=== PATIENT | male | born 1980 | race Caucasian/White ===

== ENCOUNTER 2017-11-06 20:49 | Emergency (ER) | payer OTHER ==
[~2017-11-06] VITALS: Ht 160 cm; Wt 62.6 kg
[2017-11-06 21:35] VITALS: BP 152/86
[2017-11-06] MEDS ORDERED: LIDOCAINE700 M1 TP (21:42)
[2017-11-06] MEDS ORDERED: BACTRIM DS TAB1 EAC1 ORAL (21:42)
--- NOTE | 2017-11-06 21:59 | Emergency Room Report ---
History of Present Illness General Chief Complaint: General Complaint Source: Patient Present Illness HPI Patient is a 37-year-old male presented after increased right buttock pain. Patient reportedly had the pain for the past 3 days. Patient reports having recently injected his buttock with testosterone. He reported having increased pain. He denies any fever or chills. He reported having increased difficulty with movements. He denies any numbness or tingling distally. The patient states he did not prep the skin prior to the injection. Allergies: Coded Allergies: No Known Allergies (Unverified , 11/06/17) Patient History Past Medical History: see triage record Reviewed Nursing Documentation: PMH: Agreed; PSxH: Agreed Nursing Documentation-PMH Past Medical History: No Stated History Review of Systems All Other Systems: negative except mentioned in HPI Physical Exam Vital Signs Date Time Temp Pulse Resp B/P (MAP) Pulse Ox O2 Delivery O2 Flow Rate FiO2 11/06/17 20:59 98.2 81 18 152/86 98 Room Air 98.2 General Appearance: well appearing, no apparent distress, alert, GCS 15 Head: normocephalic, atraumatic ENT: hearing grossly normal, normal voice Neck: full range of motion, supple Respiratory: no respiratory distress, speaking full sentences Cardiovascular #1: normal inspection, normal peripheral pulses, regular rate, rhythm Gastrointestinal: normal inspection, normal bowel sounds, non tender, soft Musculoskeletal: normal inspection, back normal, no calf tenderness, other - induration to right buttock Neurologic: normal gait Psychiatric: mood/affect normal Skin: no rash Medical Decision Making Diagnostic Impression: Primary Impression: Muscle injury ER Course Patient presented for skin rash. Differential diagnosis included was not limited to abscess, cellulitis, folliculitis, Fourniere's gangrene. The bedside ultrasound showed no evidence of drainable abscess. The patient was noted to have some induration from injection site. There is no evidence of the erythema. The patient be given antibiotics to the possible infection and myositis. Patient was advised to have wound rechecked in the next few days. He was advised to ice and take ibuprofen.The patient is advised to follow up with primary care doctor in 2 days. Patient is advised to return if any worsening condition or if any changes in status that are concerning. This report is dictated with [employer] reservoir engineering manager software which may occasionally lead to discrepancies related to use of this software. Last Vital Signs Date Time Temp Pulse Resp B/P (MAP) Pulse Ox O2 Delivery O2 Flow Rate FiO2 11/06/17 21:52 98.2 11/06/17 21:35 72 18 152/86 98 Room Air Status: improved Disposition: HOME, SELF-CARE Condition: Stable Scripts Lidocaine (Lidocaine) 1 Each Adh..patch 5 % TP DAILY, #40 PATCH Prov: Chapincito Blanchard MD 11/06/17 Trimethoprim/Sulfamethoxazole 160/800* (BACTRIM DS TABLET*) 1 Each Tablet 1 TAB ORAL TWICE A DAY, #14 TAB Prov: Chapincito Blanchard MD 11/06/17 Referrals: NOT CHOSEN IPA/,REFERRING (PCP) Patient Instructions: Muscle Pain, Adult Chapincito Blanchard MD Nov 06, 2017 21:59
[2017-11-06 22:15] VITALS: BP 152/86
== END 2017-11-06 22:17 | disposition home or self-care (01) ==
LOC: EMR 21:40
DX: T14.8XXA Other injury of unspecified body region, initial encounter (principal); X58.XXXA Exposure to other specified factors, initial encounter; Y92.9 Unspecified place or not applicable
CPT/HCPCS: 99283